=== PATIENT | male | born 1965 | race American Indian/Alaskan Native ===

== ENCOUNTER 2022-05-15 09:05 | Outpatient (CLI) | payer OTHER ==
--- NOTE | 2022-05-15 10:16 | XRay Report ---
Left knee 2 views INDICATION: Knee pain FINDINGS: Alignment appears normal. No large joint effusion. No acute fracture. Signer Name: Nir Melendrez MD Signed: 05/15/2022 10:12 AM Workstation Name: [id number]
--- NOTE | 2022-05-15 10:56 | XRay Report ---
Lumbar spine 3 views INDICATION: Back pain FINDINGS: Endplate degenerative changes seen throughout spine. Small anterior posterior disc osteophy lizbeth with facet arthropathy throughout spine. No subluxation or severe compression. Visualized sacrum appears normal. IMPRESSION: Degenerative change throughout spine Signer Name: Nir Melendrez MD Signed: 05/15/2022 10:51 AM Workstation Name: [id number]
--- NOTE | 2022-05-15 10:56 | XRay Report ---
Thoracic spine 4 views INDICATION: Back pain FINDINGS: Pedicles appear normal throughout. Endplate changes with anterior disc osteophytes througho ut spine. No subluxation. No severe compression injury. Signer Name: Nir Melendrez MD Signed: 05/15/2022 10:52 AM Workstation Name: [id number]
== END 2022-05-15 09:06 | disposition home or self-care (01) ==
LOC: XRAY 09:05
PROVIDERS: ATTEND Internal Medicine
DX: M47.817 Spondylosis without myelopathy or radiculopathy, lumbosacral region (principal); M25.78 Osteophyte, vertebrae
CPT/HCPCS: 72070; 72100